=== PATIENT | male | born 1955 | race Two or more races ===

== ENCOUNTER 2022-01-02 00:29 | Inpatient (IN) | payer BC, OTHER ==
[~2022-01-02] VITALS: Ht 170.2 cm; Wt 106.9 kg
[2022-01-02] VITALS (63 sets, daily range): BP systolic 71–169; BP diastolic 8–113
[2022-01-02] MEDS ORDERED: dilTIAZem 25 MG/5 ML VIAL IV ONE ×4 (00:38→02:00)
[2022-01-02] MEDS ORDERED: METOPROLOL TARTRATE 1MG/1ML-5ML VIAL IV ONE ×2 (00:49→02:00)
[2022-01-02 00:56] LABS: Basophils # (auto) 0.1 10 ^3/uL (0-0.2); Eosinophils # (auto) 0.1 10 ^3/uL (0-0.8); Eosinophils % (auto) 0.8 % (0.0-7.0); Monocytes # (auto) 1.3 10 ^3/uL (0-1.3); Nucleated Red Blood Cells % 0.2 %
[2022-01-02 00:58] LABS: Basophils % (auto) 0.6 % (0.0-2.0); Hematocrit 52.8 % (41.0-53.0); Hemoglobin 18.2 g/dL (13.5-17.5); Lymphocytes # (auto) 4.2 10 ^3/uL (0.4-5.4); Mean Corpuscular Hemoglobin 34.6 pg (28.0-32.0); Mean Corpuscular Hgb Conc. 34.5 g/dL (32.0-36.0); Mean Corpuscular Volume 100.4 fL (80.0-100.0); Monocytes % (auto) 11.7 % (0.0-12.0); Neutrophils # (auto) 5.7 10 ^3/uL (1.6-8.6); Neutrophils % (auto) 49.9 % (37.0-80.0); Red Blood Cells 5.26 10^6/uL (4.5-5.90); Red Cell Distribution Width 14.6 % (11.8-14.3); White Blood Cell 11.3 10^3/uL (4.4-10.8)
[2022-01-02 01:10] LABS: INR 1.32 (0.9-1.15); Partial Thromboplastin Time 25.6 sec (24.6-33.4)
[2022-01-02] MEDS ORDERED: dilTIAZem 125mg/125ml BAG KIT 100 ML IV STA (01:13)
[2022-01-02 01:15] LABS: Albumin 3.6 g/dL (3.4-5.0); BUN/Creatinine Ratio 14.4; Calcium 8.3 mg/dL (8.5-10.1); Magnesium 1.9 mg/dL (1.6-2.6); Potassium 3.7 mmol/L (3.5-5.1)
[2022-01-02] MEDS ORDERED: ASPirin 81 mg TAB PO ONE (01:15)
[2022-01-02 01:18] LABS: Bilirubin, Total 1.2 mg/dL (0.2-1.0); Total Protein 7.1 g/dL (6.4-8.2)
[2022-01-02] MEDS ORDERED: NOREPINEPHRINE 8 MG/250ML KIT 250 ML IV ONE (01:45)
[2022-01-02 02:20] LABS: Lactic Acid w/Reflex 7.3 mmol/L (0.4-2.0)
[2022-01-02] MEDS ORDERED: HEPARIN DRIP/D5W 100UNITS/ML 250 ML IV SCH (02:45)
[2022-01-02] MEDS ORDERED: HEPARIN SODIUM (PORCINE) 5000 UNITS/ML 1ML VIAL IV ONE (02:45)
[2022-01-02] MEDS: NOREPINEPHRINE 8 MG/250ML KIT 250 ML IV SCH (03:46)
[2022-01-02] MEDS ORDERED: AMIODARONE 450mg/250ml AE 250 ML IV SCH (04:30)
[2022-01-02] MEDS ORDERED: ONDANSETRON HCL 4 MG/2 ML VIAL IV PRN (04:30)
[2022-01-02] MEDS ORDERED: MORPHINE SULFATE INJ 2 MG/ml SYRG IV PRN (04:30)
[2022-01-02] MEDS ORDERED: FUROSEMIDE 20 MG/2 ML VIAL IV ONE ×2 (04:30→14:30)
[2022-01-02] MEDS ORDERED: NITROGLYCERIN 0.4 MG SL TAB SL PRN (04:30)
[2022-01-02] MEDS ORDERED: AMIODARONE HCL 150 MG in D5W 5% 100 ML IV ONE (04:30)
[2022-01-02] MEDS ORDERED: AMIODARONE HCL (50 MG/ ML) 3 ML VIAL IV ONE (05:00)
[2022-01-02] MEDS ORDERED: PANTOPRAZOLE 40 MG TAB PO SCH (10:00)
[2022-01-02] MEDS ORDERED: FUROSEMIDE 40 MG TAB PO SCH (10:00)
[2022-01-02] MEDS: AMIODARONE 450mg/250ml AE 250 ML IV SCH ×2 (11:15→13:02)
[2022-01-02] MEDS ORDERED: methylPREDNISolone SOD SUCC 125 MG/2 ML VL IV ONE (14:30)
[2022-01-02] MEDS ORDERED: THIAMINE 100mg/ml INJ (200mg/2ml VIAL) IV ONE (14:30)
[2022-01-02] MEDS ORDERED: LORazepam 2MG/ML-1ML VIAL IV PRN (14:30)
[2022-01-02] MEDS ORDERED: POTASSIUM CHL 10 Meq TABLET PO ONE (14:30)
[2022-01-02] MEDS ORDERED: PANTOPRAZOLE 40 MG/10 ML VIAL INJ IV ONE (14:30)
[2022-01-02] MEDS ORDERED: PIPERACILLIN-TAZOB 3.375GM 100 ML IV ONE (14:30)
[2022-01-02] MEDS ORDERED: ENOXAPARIN SOD 40 MG/0.4 ML SYRINGE SC ONE ×2 (14:45→15:15)
[2022-01-02] MEDS: ALBUTEROL SULF 2.5 MG/0.5ML(0.5%) NEB SOLN NEB PRN ×2 (16:16→22:15)
[2022-01-02] MEDS: NICOTINE 21MG/24 HR TOPICAL PATCH TD SCH (16:26)
[2022-01-02] MEDS: IPRATROPIUM BROM 0.5 MG/2.5ML INH SOL NEB SCH ×2 (18:15→22:16)
[2022-01-02] MEDS: PIPERACILLIN-TAZOB 3.375GM 100 ML IV SCH (21:55)
[2022-01-02] MEDS: methylPREDNISolone SOD SUCC 125 MG/2 ML VL IV SCH (21:55)
[2022-01-03] VITALS (82 sets, daily range): BP systolic 92–149; BP diastolic 30–107
[2022-01-03] MEDS: AMIODARONE 450mg/250ml AE 250 ML IV SCH ×2 (03:33→12:59)
[2022-01-03 04:36] LABS: Basophils # (auto) 0 10 ^3/uL (0-0.2); Eosinophils # (auto) 0 10 ^3/uL (0-0.8); Lymphocytes # (auto) 0.6 10 ^3/uL (0.4-5.4); Mean Corpuscular Hemoglobin 34.3 pg (28.0-32.0); Neutrophils % (auto) 88.9 % (37.0-80.0); Nucleated Red Blood Cells % 0.8 %
[2022-01-03 04:38] LABS: Basophils % (auto) 0.2 % (0.0-2.0); Hematocrit 52.8 % (41.0-53.0); Hemoglobin 17.7 g/dL (13.5-17.5); Lymphocytes % (auto) 5.4 % (10.0-50.0); Mean Corpuscular Hgb Conc. 33.5 g/dL (32.0-36.0); Mean Corpuscular Volume 102.3 fL (80.0-100.0); Monocytes # (auto) 0.6 10 ^3/uL (0-1.3); Monocytes % (auto) 5.5 % (0.0-12.0); Neutrophils # (auto) 9.3 10 ^3/uL (1.6-8.6); Red Blood Cells 5.16 10^6/uL (4.5-5.90); Red Cell Distribution Width 14.5 % (11.8-14.3); White Blood Cell 10.5 10^3/uL (4.4-10.8)
[2022-01-03] MEDS: IPRATROPIUM BROM 0.5 MG/2.5ML INH SOL NEB SCH ×5 (06:00→22:00)
[2022-01-03] MEDS: methylPREDNISolone SOD SUCC 125 MG/2 ML VL IV SCH (06:05)
[2022-01-03] MEDS: PIPERACILLIN-TAZOB 3.375GM 100 ML IV SCH ×3 (06:05→21:48)
[2022-01-03 07:19] LABS: Albumin 3.3 g/dL (3.4-5.0); Calcium 7.9 mg/dL (8.5-10.1); Potassium 4.3 mmol/L (3.5-5.1)
[2022-01-03 07:45] LABS: BUN/Creatinine Ratio 17.6; Bilirubin, Total 1.8 mg/dL (0.2-1.0); Total Protein 6.1 g/dL (6.4-8.2)
[2022-01-03] MEDS ORDERED: DIGOXIN (250MCG/ML) 2 ML AMPULE IV ONE ×2 (09:30→12:45)
[2022-01-03] MEDS: NOREPINEPHRINE 8 MG/250ML KIT 250 ML IV SCH (09:30)
[2022-01-03] MEDS: NICOTINE 21MG/24 HR TOPICAL PATCH TD SCH (09:55)
[2022-01-03] MEDS: PANTOPRAZOLE 40 MG/10 ML VIAL INJ IV SCH (09:55)
[2022-01-03] MEDS: THIAMINE 100mg/ml INJ (200mg/2ml VIAL) IV SCH (09:56)
[2022-01-03] MEDS ORDERED: ENOXAPARIN SOD 40 MG/0.4 ML SYRINGE SC SCH (10:00)
[2022-01-03] MEDS ORDERED: FUROSEMIDE 20 MG/2 ML VIAL IV SCH (10:00)
[2022-01-03] MEDS ORDERED: POTASSIUM CHL 10 Meq TABLET PO SCH (10:00)
[2022-01-03] MEDS ORDERED: DEXTROSE (50%) 50ML SYRG IV PRN (12:30)
[2022-01-03 13:33] LABS: Urine Bacteria FEW /hpf (None Seen); Urine Blood 2+ /uL (Negative); Urine Specific Gravity 1.018 (1.001-1.035); Urine WBC 4 /hpf (0 - 3)
[2022-01-03] MEDS: SODIUM BICARBONATE 50ML VIAL 75 ML in D5W 5% 1,000 ML IV SCH (13:38)
[2022-01-03] MEDS: methylPREDNISolone SOD SUCC 40 MG/ML VL IV SCH ×2 (15:33→21:48)
[2022-01-03] MEDS: ACCU-CHEK COMFORT CURVE STRIP VI SCH (18:11)
[2022-01-03] MEDS: InsuLIN REG 1unit/0.01ml Soln (100units/ml) SC SCH (18:16)
[2022-01-03] MEDS ORDERED: LISI40TA11 PO (18:51)
[2022-01-03] MEDS ORDERED: AMLO-496 PO (18:51)
[2022-01-03] MEDS ORDERED: HYDR25TA4 PO (18:51)
[2022-01-04] VITALS (84 sets, daily range): BP systolic 94–133; BP diastolic 65–100
[2022-01-04] MEDS: InsuLIN REG 1unit/0.01ml Soln (100units/ml) SC SCH ×4 (00:05→17:57)
[2022-01-04] MEDS: ACCU-CHEK COMFORT CURVE STRIP VI SCH ×4 (00:05→17:56)
[2022-01-04] MEDS: AMIODARONE 450mg/250ml AE 250 ML IV SCH ×2 (00:43→14:42)
[2022-01-04] MEDS: NOREPINEPHRINE 8 MG/250ML KIT 250 ML IV SCH (03:30)
[2022-01-04 04:23] LABS: Basophils # (auto) 0 10 ^3/uL (0-0.2); Eosinophils # (auto) 0 10 ^3/uL (0-0.8); Hematocrit 50.1 % (41.0-53.0); Hemoglobin 17.1 g/dL (13.5-17.5); Lymphocytes # (auto) 0.4 10 ^3/uL (0.4-5.4); Lymphocytes % (auto) 3.5 % (10.0-50.0); Mean Corpuscular Hemoglobin 33.6 pg (28.0-32.0); Mean Corpuscular Hgb Conc. 34.1 g/dL (32.0-36.0); Mean Corpuscular Volume 98.6 fL (80.0-100.0); Monocytes # (auto) 0.4 10 ^3/uL (0-1.3); Monocytes % (auto) 3.5 % (0.0-12.0); Nucleated Red Blood Cells % 0.6 %; Red Blood Cells 5.08 10^6/uL (4.5-5.90); Red Cell Distribution Width 14.5 % (11.8-14.3); White Blood Cell 11.8 10^3/uL (4.4-10.8)
[2022-01-04 04:29] LABS: INR 2.28 (0.9-1.15); Partial Thromboplastin Time 26.8 sec (24.6-33.4)
[2022-01-04 04:43] LABS: Albumin 3.1 g/dL (3.4-5.0); Calcium 7.7 mg/dL (8.5-10.1)
[2022-01-04 04:59] LABS: BUN/Creatinine Ratio 24.1; Bilirubin, Total 2.1 mg/dL (0.2-1.0); Total Protein 5.8 g/dL (6.4-8.2)
[2022-01-04] MEDS: PIPERACILLIN-TAZOB 3.375GM 100 ML IV SCH (05:34)
[2022-01-04] MEDS: methylPREDNISolone SOD SUCC 40 MG/ML VL IV SCH ×2 (05:34→22:25)
[2022-01-04] MEDS: SODIUM BICARBONATE 50ML VIAL 75 ML in D5W 5% 1,000 ML IV SCH ×4 (05:35→18:50)
[2022-01-04] MEDS: IPRATROPIUM BROM 0.5 MG/2.5ML INH SOL NEB SCH ×5 (07:05→22:02)
[2022-01-04] MEDS: ALBUTEROL SULF 2.5 MG/0.5ML(0.5%) NEB SOLN NEB PRN ×2 (07:05→13:31)
[2022-01-04] MEDS: PANTOPRAZOLE 40 MG/10 ML VIAL INJ IV SCH (09:50)
[2022-01-04] MEDS: THIAMINE 100mg/ml INJ (200mg/2ml VIAL) IV SCH (09:50)
[2022-01-04] MEDS: NICOTINE 21MG/24 HR TOPICAL PATCH TD SCH (09:52)
[2022-01-04] MEDS ORDERED: AMIODARONE 450mg/250ml AE 250 ML IV SCH (13:45)
[2022-01-04] MEDS ORDERED: CARVEDILOL 3.125 MG TAB PO ONE (14:00)
[2022-01-04] MEDS: cefTRIAXone 1GM/50ML D5W 50 ML IV SCH (16:35)
[2022-01-04] MEDS: AZITHROMYCIN 500MG/ 250ML 250 ML IV SCH (17:07)
[2022-01-04] MEDS ORDERED: CARVEDILOL 3.125 MG TAB PO SCH (22:00)
[2022-01-04] MEDS: CARVEDILOL 3.125 MG TAB PO SCH (22:27)
[2022-01-05] VITALS (23 sets, daily range): BP systolic 75–122; BP diastolic 51–93
[2022-01-05] MEDS: ACCU-CHEK COMFORT CURVE STRIP VI SCH ×4 (00:18→18:08)
[2022-01-05] MEDS: NOREPINEPHRINE 8 MG/250ML KIT 250 ML IV SCH (03:30)
[2022-01-05 04:03] LABS: Basophils # (auto) 0 10 ^3/uL (0-0.2); Eosinophils # (auto) 0 10 ^3/uL (0-0.8); Eosinophils % (auto) 0.1 % (0.0-7.0); Hemoglobin 17.2 g/dL (13.5-17.5); Lymphocytes # (auto) 0.3 10 ^3/uL (0.4-5.4); Mean Corpuscular Hemoglobin 34.4 pg (28.0-32.0); Monocytes # (auto) 0.4 10 ^3/uL (0-1.3); Monocytes % (auto) 4.5 % (0.0-12.0); Red Blood Cells 4.99 10^6/uL (4.5-5.90)
[2022-01-05 04:05] LABS: Basophils % (auto) 0.1 % (0.0-2.0); Lymphocytes % (auto) 3.1 % (10.0-50.0); Mean Corpuscular Volume 98.2 fL (80.0-100.0); Neutrophils # (auto) 8.5 10 ^3/uL (1.6-8.6); Neutrophils % (auto) 92.2 % (37.0-80.0); Nucleated Red Blood Cells % 0.6 %; Red Cell Distribution Width 14.4 % (11.8-14.3); White Blood Cell 9.3 10^3/uL (4.4-10.8)
[2022-01-05 04:17] LABS: Albumin 2.7 g/dL (3.4-5.0); Calcium 7.4 mg/dL (8.5-10.1); Potassium 4.3 mmol/L (3.5-5.1)
[2022-01-05 04:25] LABS: BUN/Creatinine Ratio 33.3; Bilirubin, Total 2.2 mg/dL (0.2-1.0); Total Protein 5.4 g/dL (6.4-8.2)
[2022-01-05] MEDS: IPRATROPIUM BROM 0.5 MG/2.5ML INH SOL NEB SCH ×6 (06:00→21:41)
[2022-01-05] MEDS: InsuLIN REG 1unit/0.01ml Soln (100units/ml) SC SCH ×4 (06:09→18:00)
[2022-01-05] MEDS: AMIODARONE 450mg/250ml AE 250 ML IV SCH ×2 (08:00→22:55)
[2022-01-05] MEDS: cefTRIAXone 1GM/50ML D5W 50 ML IV SCH (09:43)
[2022-01-05] MEDS: PANTOPRAZOLE 40 MG/10 ML VIAL INJ IV SCH (09:44)
[2022-01-05] MEDS: methylPREDNISolone SOD SUCC 40 MG/ML VL IV SCH ×2 (09:44→22:35)
[2022-01-05] MEDS: AZITHROMYCIN 500MG/ 250ML 250 ML IV SCH (09:44)
[2022-01-05] MEDS: CARVEDILOL 3.125 MG TAB PO SCH ×2 (09:46→22:37)
[2022-01-05] MEDS: NICOTINE 21MG/24 HR TOPICAL PATCH TD SCH (09:47)
[2022-01-05] MEDS ORDERED: FUROSEMIDE 20 MG/2 ML VIAL IV ONE (11:15)
[2022-01-05] MEDS ORDERED: ALBUMIN 25% 100 ML IV ONE (11:15)
[2022-01-05] MEDS: SALINE 0.65 % NASAL SPRAY 45ML BOTTLE EACHNOSTRI SCH ×2 (12:00→22:00)
[2022-01-05] MEDS: THIAMINE 100mg/ml INJ (200mg/2ml VIAL) IV SCH (12:27)
[2022-01-05] MEDS: ALBUTEROL SULF 2.5 MG/0.5ML(0.5%) NEB SOLN NEB PRN (17:37)
[2022-01-05] MEDS: SODIUM BICARBONATE 50ML VIAL 75 ML in D5W 5% 1,000 ML IV SCH (18:50)
[2022-01-06] VITALS (22 sets, daily range): BP systolic 92–156; BP diastolic 65–136
[2022-01-06] MEDS: InsuLIN REG 1unit/0.01ml Soln (100units/ml) SC SCH ×4 (00:33→17:39)
[2022-01-06 04:41] LABS: Albumin 2.5 g/dL (3.4-5.0); Calcium 6.3 mg/dL (8.5-10.1); Magnesium 1.7 mg/dL (1.6-2.6); Potassium 3.4 mmol/L (3.5-5.1)
[2022-01-06 04:50] LABS: BUN/Creatinine Ratio 39.8; Bilirubin, Direct 0.9 mg/dL (0-0.2); Bilirubin, Total 1.8 mg/dL (0.2-1.0); Total Protein 4.6 g/dL (6.4-8.2)
[2022-01-06] MEDS: IPRATROPIUM BROM 0.5 MG/2.5ML INH SOL NEB SCH ×5 (05:58→22:00)
[2022-01-06] MEDS: SALINE 0.65 % NASAL SPRAY 45ML BOTTLE EACHNOSTRI SCH ×4 (06:00→22:23)
[2022-01-06] MEDS: ACCU-CHEK COMFORT CURVE STRIP VI SCH ×4 (06:00→17:39)
[2022-01-06 06:35] LABS: INR 2.17 (0.9-1.15)
[2022-01-06] MEDS ORDERED: POTASSIUM CHL 20 Meq TABLET PO ONE (08:15)
[2022-01-06] MEDS ORDERED: MAGNESIUM OXIDE 400 MG TAB PO ONE (08:15)
[2022-01-06] MEDS ORDERED: ALBUMIN 25% 100 ML IV ONE (08:15)
[2022-01-06] MEDS: NOREPINEPHRINE 8 MG/250ML KIT 250 ML IV SCH (08:23)
[2022-01-06] MEDS: methylPREDNISolone SOD SUCC 40 MG/ML VL IV SCH ×2 (08:48→22:24)
[2022-01-06] MEDS: PANTOPRAZOLE 40 MG/10 ML VIAL INJ IV SCH (08:53)
[2022-01-06] MEDS: THIAMINE 100mg/ml INJ (200mg/2ml VIAL) IV SCH (08:54)
[2022-01-06] MEDS: NICOTINE 21MG/24 HR TOPICAL PATCH TD SCH (08:58)
[2022-01-06] MEDS: CARVEDILOL 3.125 MG TAB PO SCH (09:03)
[2022-01-06] MEDS ORDERED: FUROSEMIDE 20 MG/2 ML VIAL IV ONE (10:00)
[2022-01-06] MEDS ORDERED: CARVEDILOL 3.125 MG TAB PO ONE (11:15)
[2022-01-06] MEDS: cefTRIAXone 1GM/50ML D5W 50 ML IV SCH (11:29)
[2022-01-06] MEDS: AZITHROMYCIN 500MG/ 250ML 250 ML IV SCH (13:23)
[2022-01-06] MEDS: AMIODARONE HCL 200 MG TAB PO SCH (22:24)
[2022-01-06] MEDS: CARVEDILOL 12.5 MG TAB PO SCH (22:26)
[2022-01-07] VITALS (21 sets, daily range): BP systolic 101–138; BP diastolic 50–93
[2022-01-07] MEDS: ACCU-CHEK COMFORT CURVE STRIP VI SCH ×5 (00:14→22:42)
[2022-01-07] MEDS: InsuLIN REG 1unit/0.01ml Soln (100units/ml) SC SCH ×5 (00:21→22:41)
[2022-01-07] MEDS: NOREPINEPHRINE 8 MG/250ML KIT 250 ML IV SCH (03:30)
[2022-01-07 04:09] LABS: Basophils # (auto) 0 10 ^3/uL (0-0.2); Basophils % (auto) 0.2 % (0.0-2.0); Eosinophils # (auto) 0 10 ^3/uL (0-0.8); Lymphocytes # (auto) 0.2 10 ^3/uL (0.4-5.4); Monocytes # (auto) 0.6 10 ^3/uL (0-1.3); Nucleated Red Blood Cells % 0.5 %
[2022-01-07 04:11] LABS: Eosinophils % (auto) 0.2 % (0.0-7.0); Hematocrit 48.4 % (41.0-53.0); Hemoglobin 16.5 g/dL (13.5-17.5); Lymphocytes % (auto) 2.4 % (10.0-50.0); Mean Corpuscular Hemoglobin 33.6 pg (28.0-32.0); Mean Corpuscular Volume 98.8 fL (80.0-100.0); Monocytes % (auto) 7.2 % (0.0-12.0); Neutrophils # (auto) 7.2 10 ^3/uL (1.6-8.6); Red Cell Distribution Width 14.2 % (11.8-14.3); White Blood Cell 7.9 10^3/uL (4.4-10.8)
[2022-01-07 04:15] LABS: Anion Gap 9 (5-15); BUN/Creatinine Ratio 34.8; Blood Urea Nitrogen 39 mg/dL (7-18); Calcium 7.7 mg/dL (8.5-10.1); Carbon Dioxide 29 mmol/L (21-32); Chloride 102 mmol/L (98-107); GFR African American 84 mL/min; GFR Non-African American 70 mL/min; Glucose 128 mg/dL (74-106); Magnesium 2.2 mg/dL (1.6-2.6); Phosphorus 3.1 mg/dL (2.5-4.90); Potassium 4.1 mmol/L (3.5-5.1); Sodium 140 mmol/L (136-145)
[2022-01-07 04:26] LABS: INR 1.88 (0.9-1.15)
[2022-01-07] MEDS: IPRATROPIUM BROM 0.5 MG/2.5ML INH SOL NEB SCH ×5 (06:04→21:57)
[2022-01-07] MEDS: SALINE 0.65 % NASAL SPRAY 45ML BOTTLE EACHNOSTRI SCH ×4 (06:25→21:47)
[2022-01-07] MEDS: CARVEDILOL 12.5 MG TAB PO SCH ×2 (10:16→21:05)
[2022-01-07] MEDS: PANTOPRAZOLE 40 MG/10 ML VIAL INJ IV SCH (10:16)
[2022-01-07] MEDS: methylPREDNISolone SOD SUCC 40 MG/ML VL IV SCH (10:16)
[2022-01-07] MEDS: AZITHROMYCIN 500MG/ 250ML 250 ML IV SCH (10:17)
[2022-01-07] MEDS: AMIODARONE HCL 200 MG TAB PO SCH ×2 (10:17→21:04)
[2022-01-07] MEDS: cefTRIAXone 1GM/50ML D5W 50 ML IV SCH (10:17)
[2022-01-07] MEDS: NICOTINE 21MG/24 HR TOPICAL PATCH TD SCH (10:18)
[2022-01-07] MEDS ORDERED: LISINOPRIL 5 MG TAB PO ONE (11:45)
[2022-01-07] MEDS: ALBUTEROL SULF 2.5 MG/0.5ML(0.5%) NEB SOLN NEB PRN ×3 (14:12→21:57)
[2022-01-07] MEDS: DOXYCYCLINE 100 MG TAB/CAP PO SCH (21:06)
[2022-01-08] VITALS (14 sets, daily range): BP systolic 111–135; BP diastolic 67–95
[2022-01-08 03:56] LABS: Basophils # (auto) 0 10 ^3/uL (0-0.2); Eosinophils # (auto) 0 10 ^3/uL (0-0.8); Hemoglobin 16.1 g/dL (13.5-17.5); Lymphocytes # (auto) 0.2 10 ^3/uL (0.4-5.4); Neutrophils # (auto) 7.9 10 ^3/uL (1.6-8.6); Red Blood Cells 4.71 10^6/uL (4.5-5.90)
[2022-01-08 03:58] LABS: Basophils % (auto) 0.1 % (0.0-2.0); Hematocrit 47.3 % (41.0-53.0); Lymphocytes % (auto) 2.5 % (10.0-50.0); Mean Corpuscular Hemoglobin 34.3 pg (28.0-32.0); Mean Corpuscular Hgb Conc. 34.1 g/dL (32.0-36.0); Mean Corpuscular Volume 100.4 fL (80.0-100.0); Monocytes # (auto) 0.8 10 ^3/uL (0-1.3); Monocytes % (auto) 9.3 % (0.0-12.0); Neutrophils % (auto) 88.1 % (37.0-80.0); Red Cell Distribution Width 14.2 % (11.8-14.3)
[2022-01-08 04:16] LABS: BUN/Creatinine Ratio 29.6; Calcium 8.1 mg/dL (8.5-10.1); Potassium 4.3 mmol/L (3.5-5.1)
[2022-01-08] MEDS: InsuLIN REG 1unit/0.01ml Soln (100units/ml) SC SCH ×4 (06:00→23:53)
[2022-01-08] MEDS: SALINE 0.65 % NASAL SPRAY 45ML BOTTLE EACHNOSTRI SCH ×4 (06:00→22:19)
[2022-01-08] MEDS: ACCU-CHEK COMFORT CURVE STRIP VI SCH ×3 (06:00→18:16)
[2022-01-08] MEDS: ALBUTEROL SULF 2.5 MG/0.5ML(0.5%) NEB SOLN NEB PRN ×2 (07:49→11:19)
[2022-01-08] MEDS: IPRATROPIUM BROM 0.5 MG/2.5ML INH SOL NEB SCH ×5 (07:49→22:00)
[2022-01-08] MEDS: DOXYCYCLINE 100 MG TAB/CAP PO SCH ×2 (09:33→22:19)
[2022-01-08] MEDS: CARVEDILOL 12.5 MG TAB PO SCH ×2 (09:34→22:18)
[2022-01-08] MEDS: MULTIPLE VITAMIN TAB PO SCH (09:34)
[2022-01-08] MEDS: LISINOPRIL 5 MG TAB PO SCH (09:35)
[2022-01-08] MEDS: FUROSEMIDE 20 MG TAB PO SCH (09:35)
[2022-01-08] MEDS: AMIODARONE HCL 200 MG TAB PO SCH ×2 (09:36→22:14)
[2022-01-08] MEDS: NICOTINE 21MG/24 HR TOPICAL PATCH TD SCH (09:36)
[2022-01-08] MEDS: cefTRIAXone 1GM/50ML D5W 50 ML IV SCH (09:37)
[2022-01-08] MEDS: PANTOPRAZOLE 40 MG TAB PO SCH (09:39)
[2022-01-08] MEDS ORDERED: AZITHROMYCIN 250 MG TAB PO SCH (10:00)
[2022-01-08] MEDS ORDERED: predniSONE 20 MG TAB PO SCH (10:00)
[2022-01-08] MEDS ORDERED: IOHEXOL 350 MG/ML 100ML IJ ONE (16:31)
[2022-01-08] MEDS ORDERED: LIDOCAINE 2%HCL (LOCAL ANESTH.) INJ 20ML MDV ONE (16:31)
[2022-01-08] MEDS ORDERED: ANGIOMAX 250 MG VIAL IV ONE (16:39)
[2022-01-08] MEDS ORDERED: SODIUM CHL 0.9% 0 ML ONE (16:39)
[2022-01-08] MEDS ORDERED: MIDAZOLAM HCL 2MG/2ML 2ml VIAL (1mg/ml) ONE (16:39)
[2022-01-08] MEDS ORDERED: fentaNYL CITRATE 100 MCG/2 ML VL ONE (16:39)
[2022-01-08] MEDS ORDERED: TICAGRELOR 90 MG TAB ONE (17:07)
[2022-01-08] MEDS: TICAGRELOR 90 MG TAB PO SCH (22:00)
[2022-01-09 04:52] VITALS: BP 129/91
[2022-01-09] MEDS: InsuLIN REG 1unit/0.01ml Soln (100units/ml) SC SCH ×3 (06:00→16:41)
[2022-01-09] MEDS: SALINE 0.65 % NASAL SPRAY 45ML BOTTLE EACHNOSTRI SCH ×4 (06:00→22:09)
[2022-01-09] MEDS: ACCU-CHEK COMFORT CURVE STRIP VI SCH ×4 (06:00→16:40)
[2022-01-09 06:18] LABS: Hematocrit 50.8 % (41.0-53.0); Hemoglobin 17.4 g/dL (13.5-17.5); Mean Corpuscular Hgb Conc. 34.3 g/dL (32.0-36.0); Mean Corpuscular Volume 99.2 fL (80.0-100.0); Red Blood Cells 5.12 10^6/uL (4.5-5.90); Red Cell Distribution Width 14.6 % (11.8-14.3); White Blood Cell 10.1 10^3/uL (4.4-10.8)
[2022-01-09 06:23] LABS: BUN/Creatinine Ratio 32.7; Band Neutrophils % (manual) 0; Basophils % (manual) 0 (0.0-2.0); Blast Cells 0; Calcium 8.1 mg/dL (8.5-10.1); Metamyelocytes % 0; Myelocytes % 0; Potassium 4.1 mmol/L (3.5-5.1); Promyelocytes % 0; Reactive Lymphocytes 0
[2022-01-09] MEDS: IPRATROPIUM BROM 0.5 MG/2.5ML INH SOL NEB SCH ×5 (07:27→21:56)
[2022-01-09] MEDS: ALBUTEROL SULF 2.5 MG/0.5ML(0.5%) NEB SOLN NEB PRN ×3 (07:27→18:39)
[2022-01-09 07:43] LABS: Eosinophils % (manual) 1 (0-7); Lymphocytes % (manual) 4 (10.0-50.0); Monocytes % (manual) 12 (0-12)
[2022-01-09 09:00] VITALS: BP 133/58
[2022-01-09] MEDS: cefTRIAXone 1GM/50ML D5W 50 ML IV SCH (09:06)
[2022-01-09] MEDS: DOXYCYCLINE 100 MG TAB/CAP PO SCH ×2 (09:07→22:06)
[2022-01-09] MEDS: NICOTINE 21MG/24 HR TOPICAL PATCH TD SCH (09:07)
[2022-01-09] MEDS: TICAGRELOR 90 MG TAB PO SCH ×2 (09:08→22:08)
[2022-01-09] MEDS: ASPirin 81 mg TAB PO SCH (09:08)
[2022-01-09] MEDS: CARVEDILOL 12.5 MG TAB PO SCH ×2 (09:10→22:06)
[2022-01-09] MEDS: FUROSEMIDE 20 MG TAB PO SCH (09:10)
[2022-01-09] MEDS: MULTIPLE VITAMIN TAB PO SCH (09:11)
[2022-01-09] MEDS: LISINOPRIL 5 MG TAB PO SCH (09:11)
[2022-01-09] MEDS: PANTOPRAZOLE 40 MG TAB PO SCH (09:11)
[2022-01-09] MEDS: AMIODARONE HCL 200 MG TAB PO SCH ×2 (09:12→22:08)
[2022-01-09] MEDS ORDERED: predniSONE 20 MG TAB PO SCH (10:00)
[2022-01-09 13:00] VITALS: BP 109/67
[2022-01-09 16:45] VITALS: BP 131/80
[2022-01-09 22:00] VITALS: BP 103/73
[2022-01-10] VITALS (10 sets, daily range): BP systolic 111–150; BP diastolic 79–106
[2022-01-10] MEDS: InsuLIN REG 1unit/0.01ml Soln (100units/ml) SC SCH ×5 (06:00→22:01)
[2022-01-10] MEDS: SALINE 0.65 % NASAL SPRAY 45ML BOTTLE EACHNOSTRI SCH ×4 (06:00→21:54)
[2022-01-10] MEDS: ACCU-CHEK COMFORT CURVE STRIP VI SCH ×5 (06:00→22:01)
[2022-01-10] MEDS: IPRATROPIUM BROM 0.5 MG/2.5ML INH SOL NEB SCH ×6 (06:28→18:35)
[2022-01-10] MEDS: cefTRIAXone 1GM/50ML D5W 50 ML IV SCH (09:49)
[2022-01-10] MEDS: CARVEDILOL 12.5 MG TAB PO SCH ×2 (10:00→21:56)
[2022-01-10] MEDS: PANTOPRAZOLE 40 MG TAB PO SCH (10:00)
[2022-01-10] MEDS: MULTIPLE VITAMIN TAB PO SCH (10:00)
[2022-01-10] MEDS: AMIODARONE HCL 200 MG TAB PO SCH ×2 (10:00→21:55)
[2022-01-10] MEDS: FUROSEMIDE 20 MG TAB PO SCH (10:00)
[2022-01-10] MEDS: predniSONE 20 MG TAB PO SCH (10:00)
[2022-01-10] MEDS: NICOTINE 21MG/24 HR TOPICAL PATCH TD SCH (10:00)
[2022-01-10] MEDS: ASPirin 81 mg TAB PO SCH (10:00)
[2022-01-10] MEDS: DOXYCYCLINE 100 MG TAB/CAP PO SCH ×2 (10:00→21:55)
[2022-01-10] MEDS: LISINOPRIL 5 MG TAB PO SCH (10:00)
[2022-01-10] MEDS: TICAGRELOR 90 MG TAB PO SCH ×2 (12:00→21:54)
[2022-01-10] MEDS ORDERED: IODIXANOL 320MG/ML 100ML BTL IV ONE (13:41)
[2022-01-10] MEDS ORDERED: LIDOCAINE 2%HCL (LOCAL ANESTH.) INJ 20ML MDV ONE (13:42)
[2022-01-10] MEDS ORDERED: fentaNYL CITRATE 100 MCG/2 ML VL ONE (14:11)
[2022-01-10] MEDS ORDERED: MIDAZOLAM HCL 2MG/2ML 2ml VIAL (1mg/ml) ONE (14:11)
[2022-01-10] MEDS ORDERED: SODIUM CHL 0.9% 50 ML ONE ×2 (14:12→15:34)
[2022-01-10] MEDS ORDERED: ANGIOMAX 250 MG VIAL IV ONE ×2 (14:12→15:33)
[2022-01-10] MEDS ORDERED: ATROPINE SULF 1 MG/10ml SYR ONE (14:45)
[2022-01-10] MEDS ORDERED: EPINEPHrine HCL 1 MG/10 ML SYRG ONE (14:46)
[2022-01-10] MEDS ORDERED: EPINEPHrine HCL 1 MG/1 ML AMP ONE (14:46)
[2022-01-10] MEDS ORDERED: IOHEXOL 350 MG/ML 100ML IJ ONE ×2 (14:54→15:41)
[2022-01-10] MEDS ORDERED: TICAGRELOR 90 MG TAB ONE (15:59)
[2022-01-11 05:00] VITALS: BP 124/81
[2022-01-11] MEDS: SALINE 0.65 % NASAL SPRAY 45ML BOTTLE EACHNOSTRI SCH ×4 (05:37→22:39)
[2022-01-11] MEDS: InsuLIN REG 1unit/0.01ml Soln (100units/ml) SC SCH ×4 (05:37→22:47)
[2022-01-11] MEDS: ACCU-CHEK COMFORT CURVE STRIP VI SCH ×4 (05:37→22:47)
[2022-01-11] MEDS: ALBUTEROL SULF 2.5 MG/0.5ML(0.5%) NEB SOLN NEB PRN ×4 (06:32→18:32)
[2022-01-11] MEDS: IPRATROPIUM BROM 0.5 MG/2.5ML INH SOL NEB SCH ×5 (06:32→22:00)
[2022-01-11 09:00] VITALS: BP 109/59
[2022-01-11] MEDS ORDERED: ACETAMINOPHEN 325 MG TAB PO PRN (09:00)
[2022-01-11 09:20] VITALS: BP 109/59
[2022-01-11] MEDS: cefTRIAXone 1GM/50ML D5W 50 ML IV SCH (10:28)
[2022-01-11] MEDS: NICOTINE 21MG/24 HR TOPICAL PATCH TD SCH (10:31)
[2022-01-11] MEDS: FUROSEMIDE 20 MG TAB PO SCH (10:32)
[2022-01-11] MEDS: MULTIPLE VITAMIN TAB PO SCH (10:33)
[2022-01-11] MEDS: DOXYCYCLINE 100 MG TAB/CAP PO SCH ×2 (10:34→22:38)
[2022-01-11] MEDS: AMIODARONE HCL 200 MG TAB PO SCH ×2 (10:37→22:38)
[2022-01-11] MEDS: CARVEDILOL 12.5 MG TAB PO SCH ×2 (10:38→22:00)
[2022-01-11] MEDS: LISINOPRIL 5 MG TAB PO SCH (10:39)
[2022-01-11] MEDS: ASPirin 81 mg TAB PO SCH (10:40)
[2022-01-11] MEDS ORDERED: HYDROcodone-ACET 5/325MG TAB PO PRN (11:30)
[2022-01-11] MEDS: predniSONE 20 MG TAB PO SCH (11:40)
[2022-01-11] MEDS: PANTOPRAZOLE 40 MG TAB PO SCH (11:43)
[2022-01-11] MEDS: TICAGRELOR 90 MG TAB PO SCH ×2 (11:43→22:39)
[2022-01-11 12:47] VITALS: BP 108/59
[2022-01-11 19:50] LABS: White Blood Cell 9.1 10^3/uL (4.4-10.8)
[2022-01-11 19:51] LABS: Hemoglobin 17.9 g/dL (13.5-17.5); Mean Corpuscular Hemoglobin 34.6 pg (28.0-32.0); Mean Corpuscular Hgb Conc. 35.1 g/dL (32.0-36.0); Mean Corpuscular Volume 98.4 fL (80.0-100.0); Red Blood Cells 5.18 10^6/uL (4.5-5.90); Red Cell Distribution Width 14.5 % (11.8-14.3)
[2022-01-11 19:56] LABS: Basophils % (manual) 0 (0.0-2.0); Blast Cells 0; Eosinophils % (manual) 0 (0-7); Myelocytes % 0; Promyelocytes % 0; Reactive Lymphocytes 0
[2022-01-11 20:40] LABS: Band Neutrophils % (manual) 5; Lymphocytes % (manual) 6 (10.0-50.0); Metamyelocytes % 1; Monocytes % (manual) 4 (0-12)
[2022-01-11 22:00] VITALS: BP 113/74
[2022-01-12 05:00] VITALS: BP 136/86
[2022-01-12] MEDS: ACCU-CHEK COMFORT CURVE STRIP VI SCH ×2 (05:01→14:53)
[2022-01-12] MEDS: SALINE 0.65 % NASAL SPRAY 45ML BOTTLE EACHNOSTRI SCH ×2 (05:01→14:57)
[2022-01-12] MEDS: InsuLIN REG 1unit/0.01ml Soln (100units/ml) SC SCH ×2 (05:01→12:00)
[2022-01-12] MEDS: ALBUTEROL SULF 2.5 MG/0.5ML(0.5%) NEB SOLN NEB PRN ×3 (05:39→13:43)
[2022-01-12] MEDS: IPRATROPIUM BROM 0.5 MG/2.5ML INH SOL NEB SCH ×3 (05:39→13:43)
[2022-01-12 08:39] VITALS: BP 113/82
[2022-01-12] MEDS: LISINOPRIL 5 MG TAB PO SCH (09:00)
[2022-01-12] MEDS: CARVEDILOL 12.5 MG TAB PO SCH (09:01)
[2022-01-12] MEDS: predniSONE 20 MG TAB PO SCH (09:13)
[2022-01-12] MEDS: AMIODARONE HCL 200 MG TAB PO SCH (09:13)
[2022-01-12] MEDS: cefTRIAXone 1GM/50ML D5W 50 ML IV SCH (09:13)
[2022-01-12] MEDS: DOXYCYCLINE 100 MG TAB/CAP PO SCH (09:14)
[2022-01-12] MEDS: MULTIPLE VITAMIN TAB PO SCH (09:14)
[2022-01-12] MEDS: ASPirin 81 mg TAB PO SCH (09:14)
[2022-01-12] MEDS: TICAGRELOR 90 MG TAB PO SCH (09:14)
[2022-01-12] MEDS: PANTOPRAZOLE 40 MG TAB PO SCH (09:14)
[2022-01-12] MEDS: FUROSEMIDE 20 MG TAB PO SCH (09:15)
[2022-01-12] MEDS: NICOTINE 21MG/24 HR TOPICAL PATCH TD SCH (09:23)
[2022-01-12 13:26] VITALS: BP 112/76
[2022-01-12] MEDS ORDERED: DOCUSATE SOD 100 MG CAP PO PRN (13:30)
[2022-01-12] MEDS ORDERED: AMIO200T33 PO (14:27)
[2022-01-12] MEDS ORDERED: DOCU100C10 PO (14:27)
[2022-01-12] MEDS ORDERED: TICA90TA PO (14:27)
[2022-01-12] MEDS ORDERED: ASPI-325 PO (14:27)
[2022-01-12] MEDS ORDERED: CAR125T PO (14:27)
[2022-01-12] MEDS ORDERED: FUR20T PO (14:27)
[2022-01-12] MEDS ORDERED: NITR0.4S29 SL (14:27)
[2022-01-12] MEDS ORDERED: LISI-275 PO (14:28)
[2022-01-12 15:50] VITALS: BP 113/82
== END 2022-01-12 17:30 | disposition home or self-care (01) | DRG 853 ==
LOC: EDUNIT# 00:29 → EDBD 00:29 → ER 00:29 → TELE 04:25 → ICU WEST 07:51 → TELE-WESTW 01-08 06:38
PROVIDERS: ADMIT Nurse Practitioner; ATTEND Internal Medicine
PROC: 05HC33Z Insertion of Infusion Device into Left Basilic Vein, Percutaneous Approach (ICD-10-PCS; 2022-01-02)
PROC: B54NZZA Ultrasonography of Left Upper Extremity Veins, Guidance (ICD-10-PCS; 2022-01-02)
PROC: 5A09357 Assistance with Respiratory Ventilation, Less than 24 Consecutive Hours, Continuous Positive Airway Pressure (ICD-10-PCS; 2022-01-02)
PROC: 4A023N7 Measurement of Cardiac Sampling and Pressure, Left Heart, Percutaneous Approach (ICD-10-PCS; 2022-01-08)
PROC: B215YZZ Fluoroscopy of Left Heart using Other Contrast (ICD-10-PCS; 2022-01-08)
PROC: B211YZZ Fluoroscopy of Multiple Coronary Arteries using Other Contrast (ICD-10-PCS; 2022-01-08)
PROC: 027034Z Dilation of Coronary Artery, One Artery with Drug-eluting Intraluminal Device, Percutaneous Approach (ICD-10-PCS; principal; 2022-01-10)
PROC: 02C03ZZ Extirpation of Matter from Coronary Artery, One Artery, Percutaneous Approach (ICD-10-PCS; 2022-01-10)
PROC: 5A0221D Assistance with Cardiac Output using Impeller Pump, Continuous (ICD-10-PCS; 2022-01-10)
PROC: 02HA3RJ Insertion of Short-term External Heart Assist System into Heart, Intraoperative, Percutaneous Approach (ICD-10-PCS; 2022-01-10)
DX: A41.9 Sepsis, unspecified organism (principal); I21.4 Non-ST elevation (NSTEMI) myocardial infarction; J18.9 Pneumonia, unspecified organism; N17.0 Acute kidney failure with tubular necrosis; R57.0 Cardiogenic shock; J96.00 Acute respiratory failure, unspecified whether with hypoxia or hypercapnia; I50.41 Acute combined systolic (congestive) and diastolic (congestive) heart failure; K72.00 Acute and subacute hepatic failure without coma; E87.20 Acidosis, unspecified; D68.59 Other primary thrombophilia; J44.1 Chronic obstructive pulmonary disease with (acute) exacerbation; I47.1 Supraventricular tachycardia; J44.0 Chronic obstructive pulmonary disease with (acute) lower respiratory infection; Z20.822 Contact with and (suspected) exposure to COVID-19; K72.90 Hepatic failure, unspecified without coma; D69.6 Thrombocytopenia, unspecified; I25.5 Ischemic cardiomyopathy; I48.91 Unspecified atrial fibrillation; I11.0 Hypertensive heart disease with heart failure; E66.9 Obesity, unspecified; Z68.31 Body mass index [BMI] 31.0-31.9, adult; F10.10 Alcohol abuse, uncomplicated; F17.210 Nicotine dependence, cigarettes, uncomplicated
CPT/HCPCS: 33967; 33968; 36415; 36600; 71045; 76705; 80048; 80053; 80162; 81001; 82248; 82805; 82962; 83036; 83605; 83735; 83880; 84100; 84484; 85007; 85025; 85027; 85379; 85610; 85730; 87040; 87081; 87426; 87493; 92933; 93005; 93306; 93458; 93970; 94640; 94660; 96365; 96366; 96367; 96368; 96375; 96376; 99152; 99153; 99291; C1874; C9113; G0378; J0171; J0696; J1815; J2250; J2405; J2543; J7060; P9047; Q9967

== ENCOUNTER → 2022-01-23 | Outpatient (CLI) | payer BC ==
[~2022-01-23] MED LIST: AMIO200T33 PO; ASPI-325 PO; CAR125T PO; DOCU100C10 PO; FUR20T PO; LISI-275 PO; NITR0.4S29 SL; TICA90TA PO
[2022-01-23 10:42] LABS: Potassium 4.4 mmol/L (3.5-5.1)
[2022-01-23 10:48] LABS: Albumin 2.8 g/dL (3.4-5.0); BUN/Creatinine Ratio 17.1; Bilirubin, Total 0.9 mg/dL (0.2-1.0); Calcium 8.6 mg/dL (8.5-10.1); Total Protein 6.7 g/dL (6.4-8.2)
[2022-01-23 19:02] LABS: Hepatitis A Ab IgM Negative; Hepatitis B Core IgM Negative; Hepatitis C Antibody Negative (Negative)
== END | disposition home or self-care (01) ==
LOC: LAB 09:54
PROVIDERS: ATTEND Nurse Practitioner Family
DX: R74.01 Elevation of levels of liver transaminase levels (principal)
CPT/HCPCS: 36415; 80053; 86705; 86709; 86803; 87340

== ENCOUNTER 2022-02-19 07:18 | Day surgery (SDC) | payer BC ==
[~2022-02-19] VITALS: Ht 175.3 cm; Wt 77.1 kg
[~2022-02-19 07:18] MED LIST changes: -AMIO200T33 PO; +APIX2.5T PO; -ASPI-325 PO; -DOCU100C10 PO; -NITR0.4S29 SL
[2022-02-19] MEDS ORDERED: fentaNYL CITRATE 100 MCG/2 ML VL IV ONE (08:15)
[2022-02-19] MEDS ORDERED: diphenhdrAMINE HCL 50 MG/1 ML VL IV ONE (08:15)
[2022-02-19] MEDS ORDERED: LIDOCAINE VISCOUS 2% 15ML UD MT PRN (08:15)
[2022-02-19] MEDS ORDERED: MIDAZOLAM HCL 2MG/2ML 2ml VIAL (1mg/ml) IV ONE (08:15)
[2022-02-19] MEDS ORDERED: LISINOPRIL 5 MG TAB PO SCH (10:00)
[2022-02-19] MEDS ORDERED: APIXABAN 2.5 MG TAB PO SCH (10:00)
[2022-02-19] MEDS ORDERED: TICAGRELOR 90 MG TAB PO SCH (10:00)
[2022-02-19] MEDS ORDERED: FUROSEMIDE 20 MG TAB PO SCH (10:00)
== END 2022-02-19 09:00 | disposition home or self-care (01) ==
LOC: CATH 07:18
PROVIDERS: ATTEND Internal Medicine
DX: I48.92 Unspecified atrial flutter (principal); Z53.8 Procedure and treatment not carried out for other reasons; Z20.822 Contact with and (suspected) exposure to COVID-19

== ENCOUNTER → 2022-07-17 | Outpatient (CLI) | payer BC ==
[2022-07-17 09:02] LABS: Basophils # (auto) 0.1 10 ^3/uL (0-0.2); Basophils % (auto) 0.8 % (0.0-2.0); Eosinophils # (auto) 0.3 10 ^3/uL (0-0.8); Eosinophils % (auto) 3.8 % (0.0-7.0); Hematocrit 49.4 % (41.0-53.0); Lymphocytes # (auto) 1.9 10 ^3/uL (0.4-5.4); Lymphocytes % (auto) 24.6 % (10.0-50.0); Mean Corpuscular Hemoglobin 31.2 pg (28.0-32.0); Mean Corpuscular Hgb Conc. 34.4 g/dL (32.0-36.0); Mean Corpuscular Volume 90.8 fL (80.0-100.0); Monocytes % (auto) 13.8 % (0.0-12.0); Neutrophils # (auto) 4.3 10 ^3/uL (1.6-8.6); Nucleated Red Blood Cells % 0.1 %; Red Blood Cells 5.44 10^6/uL (4.5-5.90); Red Cell Distribution Width 14.2 % (11.8-14.3); White Blood Cell 7.6 10^3/uL (4.4-10.8)
[2022-07-17 09:46] LABS: Albumin 3.5 g/dL (3.4-5.0); Calcium 9.8 mg/dL (8.5-10.1); Potassium 4.2 mmol/L (3.5-5.1)
[2022-07-17 09:52] LABS: BUN/Creatinine Ratio 19.2 (10.0-20.0); Bilirubin, Total 0.8 mg/dL (0.2-1.0); Total Protein 7.6 g/dL (6.4-8.2)
[2022-07-17 09:56] LABS: Free T4 (Free Thyroxine) 1.32 ng/dL (0.89-1.76); Prostate Specific Antigen 1.11 ng/mL (0.0-4.0)
== END | disposition home or self-care (01) ==
LOC: LAB 08:40
PROVIDERS: ATTEND Nurse Practitioner Family
DX: I25.5 Ischemic cardiomyopathy (principal); J44.9 Chronic obstructive pulmonary disease, unspecified; R74.8 Abnormal levels of other serum enzymes; R35.1 Nocturia
CPT/HCPCS: 36415; 80053; 80061; 84153; 84439; 84443; 85025

== ENCOUNTER 2023-12-13 08:04 | Inpatient (IN) | payer MEDICARE, MEDICAID ==
[~2023-12-13] VITALS: Ht 175.3 cm; Wt 85.5 kg
[~2023-12-13 08:04] MED LIST changes: -CAR125T PO; +CARV-216 PO; -FUR20T PO; +FURO20TA4 PO
[2023-12-13] MEDS: dilTIAZem 25 MG/5 ML VIAL IV ONE (09:37)
[2023-12-13] MEDS: dilTIAZem 125mg/125ml BAG KIT 125 ML IV ONE (09:47)
[2023-12-13 09:52] VITALS: PULSE 156; RESP 20; O2SAT 100
[2023-12-13 10:05] LABS: Potassium 4.2 mmol/L (3.5-5.1); Sodium 138 mmol/L (136-145)
[2023-12-13 10:06] LABS: Carbon Dioxide 27 mmol/L (20-30)
[2023-12-13 10:07] LABS: Calcium 9.7 mg/dL (8.7-10.4)
[2023-12-13 10:09] LABS: Basophils # (auto) 0.1 10 ^3/uL (0-0.2); Eosinophils # (auto) 0 10 ^3/uL (0-0.8); Eosinophils % (auto) 0.3 % (0.0-7.0); Hemoglobin 13.8 g/dL (13.5-17.5); Lymphocytes # (auto) 1.3 10 ^3/uL (0.4-5.4); Mean Corpuscular Hemoglobin 26.8 pg (28.0-32.0); Monocytes # (auto) 0.8 10 ^3/uL (0-1.3); Nucleated Red Blood Cells % 0.1 %
[2023-12-13 10:11] LABS: BUN/Creatinine Ratio 20.2 (10.0-20.0); Basophils % (auto) 0.7 % (0.0-2.0); Blood Urea Nitrogen 22 mg/dL (9-23); Glucose 97 mg/dL (74-106); Lymphocytes % (auto) 15.7 % (10.0-50.0); Mean Corpuscular Hgb Conc. 32.9 g/dL (32.0-36.0); Mean Corpuscular Volume 81.4 fL (80.0-100.0); Monocytes % (auto) 9.7 % (0.0-12.0); Neutrophils # (auto) 6.3 10 ^3/uL (1.6-8.6); Neutrophils % (auto) 73.6 % (37.0-80.0); Platelet Count (auto) 232 10^3/uL (140-450); Red Blood Cells 5.16 10^6/uL (4.5-5.90); Red Cell Distribution Width 17.1 % (11.8-14.3); White Blood Cell 8.5 10^3/uL (4.4-10.8)
[2023-12-13 10:45] LABS: Anion Gap 10 (5-15); Chloride 101 mmol/L (98-107)
[2023-12-13 11:21] LABS: Urine Bacteria None Seen /hpf (None Seen)
[2023-12-13] MEDS: FUROSEMIDE 40 MG/4 ML VIAL IV ONE (11:34)
[2023-12-13 12:09] LABS: Urine Blood Negative /uL (Negative); Urine Clarity Clear (Clear); Urine Color Yellow (Yellow); Urine Hyaline Cast FEW /lpf (0 - 2); Urine Mucus FEW (None Seen); Urine Protein, UAD 1+ (Negative); Urine Specific Gravity 1.025 (1.001-1.035); Urine Urobilinogen 3 mg/dL (Negative); Urine WBC 3 /hpf (0 - 3); Urine pH 5.5 (5.0-9.0)
[2023-12-13] MEDS ORDERED: NITROGLYCERIN 0.4 MG SL TAB SL PRN (12:30)
[2023-12-13] MEDS ORDERED: MORPHINE SULFATE INJ 2 MG/ml SYRG IV PRN (12:30)
[2023-12-13 12:54] LABS: Triglycerides 76 mg/dL (< 150)
[2023-12-13 12:55] LABS: LDL Cholesterol 61 mg/dL (< 100)
[2023-12-13 12:56] LABS: Cholesterol 93 mg/dL (< 200); HDL Cholesterol 18 mg/dL (40-59)
[2023-12-13] MEDS: DIGOXIN (250MCG/ML) 2 ML AMPULE IV ONE (13:09)
[2023-12-13 15:38] VITALS: BP 114/71; PULSE 128; RESP 20; O2SAT 94
[2023-12-13] MEDS: dilTIAZem 125mg/125ml BAG KIT 125 ML IV SCH (17:56)
[2023-12-13 19:30] VITALS: PULSE 93; RESP 18; O2SAT 96
[2023-12-13] MEDS: APIXABAN 2.5 MG TAB PO SCH (21:31)
[2023-12-13] MEDS: CARVEDILOL 12.5 MG TAB PO SCH (21:31)
[2023-12-13] MEDS ORDERED: TICAGRELOR 90 MG TAB PO SCH (22:00)
[2023-12-13 22:22] VITALS: O2SAT 93
[2023-12-13 22:24] VITALS: O2SAT 93
[2023-12-13] MEDS: SODIUM CHLORIDE 0.9% 1,000 ML IV ONE (22:52)
[2023-12-14] MEDS: MIDODRINE HCL 10 MG TAB PO SCH (00:37)
[2023-12-14] MEDS: SODIUM CHLORIDE 0.9% 1,000 ML IV SCH (03:23)
[2023-12-14] MEDS: NOREPINEPHRINE 8 MG/250ML KIT 250 ML IV SCH (04:34)
[2023-12-14 06:32] VITALS: O2SAT 98
[2023-12-14 06:50] LABS: Basophils # (auto) 0.1 10 ^3/uL (0-0.2); Basophils % (auto) 0.8 % (0.0-2.0); Eosinophils # (auto) 0.1 10 ^3/uL (0-0.8); Eosinophils % (auto) 1.5 % (0.0-7.0); Hematocrit 37.9 % (41.0-53.0); Hemoglobin 12.6 g/dL (13.5-17.5); Lymphocytes # (auto) 0.9 10 ^3/uL (0.4-5.4); Lymphocytes % (auto) 12.6 % (10.0-50.0); Mean Corpuscular Hemoglobin 27.2 pg (28.0-32.0); Mean Corpuscular Hgb Conc. 33.2 g/dL (32.0-36.0); Mean Corpuscular Volume 81.9 fL (80.0-100.0); Monocytes # (auto) 0.7 10 ^3/uL (0-1.3); Monocytes % (auto) 10.5 % (0.0-12.0); Neutrophils # (auto) 5.2 10 ^3/uL (1.6-8.6); Neutrophils % (auto) 74.6 % (37.0-80.0); Nucleated Red Blood Cells % 0.1 %; Platelet Count (auto) 195 10^3/uL (140-450); Red Blood Cells 4.63 10^6/uL (4.5-5.90); Red Cell Distribution Width 17.1 % (11.8-14.3); White Blood Cell 6.9 10^3/uL (4.4-10.8)
[2023-12-14 07:11] LABS: Alanine Aminotransferase 31 U/L (7-40); Albumin 3.5 g/dL (3.2-4.8); Alkaline Phosphatase 108 U/L (46-116); Anion Gap 7 (5-15); Aspartate Aminotransferase 48 U/L (13-40); BUN/Creatinine Ratio 20.3 (10.0-20.0); Blood Urea Nitrogen 25 mg/dL (9-23); Calcium 8.8 mg/dL (8.7-10.4); Carbon Dioxide 27 mmol/L (20-30); Chloride 103 mmol/L (98-107); Glucose 83 mg/dL (74-106); Potassium 4.3 mmol/L (3.5-5.1); Sodium 137 mmol/L (136-145)
[2023-12-14 07:12] LABS: Total Protein 5.9 g/dL (5.7-8.2)
[2023-12-14 07:30] VITALS: PULSE 86; RESP 29; O2SAT 97
[2023-12-14] MEDS: LISINOPRIL 5 MG TAB PO SCH (09:51)
[2023-12-14] MEDS ORDERED: ENOXAPARIN SOD 40 MG/0.4 ML SYRINGE SC SCH (10:00)
[2023-12-14] MEDS: FUROSEMIDE 20 MG/2 ML VIAL IV SCH ×2 (10:03→22:08)
[2023-12-14] MEDS: ASPirin 81 mg TAB PO ONE (10:38)
[2023-12-14] MEDS: AZITHROMYCIN 500MG/ 250ML 250 ML IV ONE (10:48)
[2023-12-14] MEDS: cefTRIAXone 1GM/50ML D5W 50 ML IV ONE (10:49)
[2023-12-14] MEDS: FAMOTIDINE 20 MG TAB PO ONE (10:55)
[2023-12-14 11:35] LABS: Rapid Influenza A Negative (Negative); Rapid Influenza B Negative (Negative)
[2023-12-14 11:38] LABS: COVID19 ANTIGEN SOFIA FIA NEGATIVE (NEGATIVE)
[2023-12-14] MEDS: AMIODARONE BOLUS KIT 100 ML IV ONE (17:51)
[2023-12-14] MEDS: AMIODARONE 450mg/250ml AE 250 ML IV SCH ×2 (18:12→23:07)
[2023-12-14 18:25] VITALS: O2SAT 97
[2023-12-15 05:19] LABS: Basophils # (auto) 0.1 10 ^3/uL (0-0.2); Eosinophils # (auto) 0.1 10 ^3/uL (0-0.8); Hemoglobin 13.2 g/dL (13.5-17.5); Mean Corpuscular Volume 83.3 fL (80.0-100.0); Nucleated Red Blood Cells % 0.2 %
[2023-12-15 05:21] LABS: Basophils % (auto) 0.8 % (0.0-2.0); Eosinophils % (auto) 1.1 % (0.0-7.0); Hematocrit 41.2 % (41.0-53.0); Lymphocytes # (auto) 1.3 10 ^3/uL (0.4-5.4); Lymphocytes % (auto) 15.5 % (10.0-50.0); Mean Corpuscular Hemoglobin 26.6 pg (28.0-32.0); Mean Corpuscular Hgb Conc. 31.9 g/dL (32.0-36.0); Monocytes % (auto) 11.7 % (0.0-12.0); Neutrophils # (auto) 6.2 10 ^3/uL (1.6-8.6); Neutrophils % (auto) 70.9 % (37.0-80.0); Platelet Count (auto) 197 10^3/uL (140-450); Red Blood Cells 4.94 10^6/uL (4.5-5.90); Red Cell Distribution Width 17.4 % (11.8-14.3); White Blood Cell 8.7 10^3/uL (4.4-10.8)
[2023-12-15 05:31] LABS: INR 1.62 (0.9-1.15); Partial Thromboplastin Time 28.7 SEC (24.5-34.5); Prothrombin Time 16.6 sec (9.3-11.8)
[2023-12-15 05:32] LABS: Alanine Aminotransferase 32 U/L (7-40); Albumin 3.5 g/dL (3.2-4.8); Alkaline Phosphatase 111 U/L (46-116); Anion Gap 6 (5-15); Aspartate Aminotransferase 51 U/L (13-40); BUN/Creatinine Ratio 17.2 (10.0-20.0); Blood Urea Nitrogen 22 mg/dL (9-23); Calcium 8.9 mg/dL (8.7-10.4); Carbon Dioxide 24 mmol/L (20-30); Chloride 104 mmol/L (98-107); Cholesterol 75 mg/dL (< 200); Glucose 109 mg/dL (74-106); HDL Cholesterol 16 mg/dL (40-59); LDL Cholesterol 47 mg/dL (< 100); Magnesium 2.2 mg/dL (1.6-2.6); Potassium 4.2 mmol/L (3.5-5.1); Sodium 134 mmol/L (136-145); Triglycerides 71 mg/dL (< 150)
[2023-12-15 05:33] LABS: Bilirubin, Total 0.9 mg/dL (0.2-1.0); Total Protein 6.2 g/dL (5.7-8.2)
[2023-12-15 07:15] VITALS: PULSE 88; RESP 21; O2SAT 93
[2023-12-15 07:20] VITALS: O2SAT 94
[2023-12-15] MEDS: cefTRIAXone 1GM/50ML D5W 50 ML IV SCH (09:17)
[2023-12-15] MEDS ORDERED: AZITHROMYCIN 500MG/ 250ML 250 ML IV SCH (10:00)
[2023-12-15] MEDS: FAMOTIDINE 20 MG TAB PO SCH (10:20)
[2023-12-15] MEDS: ASPirin 81 mg TAB PO SCH (10:20)
[2023-12-15] MEDS: ALBUTEROL SULF 2.5 MG/0.5ML(0.5%) NEB SOLN NEB PRN (15:33)
[2023-12-15] MEDS: BUMETANIDE 2.5mg/10ml (0.25 mg/ml) INJ IV ONE (16:49)
[2023-12-15 18:20] VITALS: O2SAT 98
[2023-12-15] MEDS: metOLazone 5 MG TAB PO ONE (19:19)
[2023-12-15 19:45] VITALS: PULSE 107; RESP 22; O2SAT 97
[2023-12-15] MEDS: TICAGRELOR 90 MG TAB PO SCH (22:19)
[2023-12-15 22:38] VITALS: BP 113/84; PULSE 107; PULSE 90; RESP 18; TEMP 98; O2SAT 95; O2SAT 98
[2023-12-16] VITALS (9 sets, daily range): BP systolic 97–120; BP diastolic 65–81; PULSE 60–99; RESP 16–19; TEMP 97.3–98.3; O2SAT 91–99
[2023-12-16 06:30] LABS: Basophils # (auto) 0.1 10 ^3/uL (0-0.2); Basophils % (auto) 0.9 % (0.0-2.0); Eosinophils # (auto) 0.1 10 ^3/uL (0-0.8); Eosinophils % (auto) 0.9 % (0.0-7.0); Hematocrit 40.6 % (41.0-53.0); Hemoglobin 13.4 g/dL (13.5-17.5); Lymphocytes # (auto) 0.8 10 ^3/uL (0.4-5.4); Lymphocytes % (auto) 9.6 % (10.0-50.0); Mean Corpuscular Hemoglobin 26.5 pg (28.0-32.0); Mean Corpuscular Volume 80.5 fL (80.0-100.0); Monocytes # (auto) 0.8 10 ^3/uL (0-1.3); Monocytes % (auto) 9.5 % (0.0-12.0); Neutrophils # (auto) 6.8 10 ^3/uL (1.6-8.6); Neutrophils % (auto) 79.1 % (37.0-80.0); Platelet Count (auto) 200 10^3/uL (140-450); Red Blood Cells 5.05 10^6/uL (4.5-5.90); Red Cell Distribution Width 16.8 % (11.8-14.3); White Blood Cell 8.7 10^3/uL (4.4-10.8)
[2023-12-16 06:41] LABS: Alanine Aminotransferase 37 U/L (7-40); Albumin 3.8 g/dL (3.2-4.8); Alkaline Phosphatase 117 U/L (46-116); Anion Gap 8 (5-15); Aspartate Aminotransferase 56 U/L (13-40); Bilirubin, Total 1.2 mg/dL (0.2-1.0); Blood Urea Nitrogen 30 mg/dL (9-23); Calcium 9.4 mg/dL (8.7-10.4); Carbon Dioxide 32 mmol/L (20-30); Chloride 96 mmol/L (98-107); Glucose 94 mg/dL (74-106); Potassium 3.5 mmol/L (3.5-5.1); Sodium 136 mmol/L (136-145); Total Protein 6.7 g/dL (5.7-8.2)
[2023-12-16] MEDS ORDERED: LEVALBUTEROL HCL 1.25 MG/3 ML NEB NEB PRN (10:00)
[2023-12-16] MEDS: FUROSEMIDE 20 MG/2 ML VIAL IV SCH (18:00)
[2023-12-16] MEDS: DOBUTamine 1000MCG/ML 250 ML IV SCH (21:08)
[2023-12-17] VITALS (11 sets, daily range): BP systolic 107–128; BP diastolic 64–83; PULSE 70–105; RESP 18–20; TEMP 97.6–98.2; O2SAT 62–99
[2023-12-17 08:10] LABS: Chloride 94 mmol/L (98-107); Potassium 3.4 mmol/L (3.5-5.1); Sodium 137 mmol/L (136-145)
[2023-12-17 08:11] LABS: Anion Gap 7 (5-15); Calcium 9.2 mg/dL (8.7-10.4); Carbon Dioxide 36 mmol/L (20-30)
[2023-12-17 08:16] LABS: Glucose 82 mg/dL (74-106)
[2023-12-17 08:17] LABS: BUN/Creatinine Ratio 24.6 (10.0-20.0); Blood Urea Nitrogen 31 mg/dL (9-23)
[2023-12-17] MEDS: CLOPIDOGREL BISULFATE 75 MG TAB PO SCH (09:28)
[2023-12-17] MEDS: POTASSIUM CHL 20 Meq TABLET PO ONE (10:45)
[2023-12-17] MEDS: FUROSEMIDE 20 MG/2 ML VIAL IV SCH (17:30)
[2023-12-17] MEDS: CARVEDILOL 12.5 MG TAB PO SCH (21:43)
[2023-12-18] VITALS (10 sets, daily range): BP systolic 101–114; BP diastolic 63–78; PULSE 52–114; RESP 16–18; TEMP 97.8–98.2; O2SAT 95–98
[2023-12-18 06:37] LABS: Calcium 9.8 mg/dL (8.7-10.4); Chloride 91 mmol/L (98-107); Potassium 3.5 mmol/L (3.5-5.1); Sodium 136 mmol/L (136-145)
[2023-12-18 06:38] LABS: Anion Gap 5 (5-15); Carbon Dioxide 40 mmol/L (20-30)
[2023-12-18 06:43] LABS: BUN/Creatinine Ratio 20.2 (10.0-20.0); Blood Urea Nitrogen 24 mg/dL (9-23); Glucose 82 mg/dL (74-106)
[2023-12-18] MEDS: AMIODARONE HCL 200 MG TAB PO SCH (09:56)
[2023-12-18] MEDS: ACETAMINOPHEN 325 MG TAB PO PRN (23:01)
[2023-12-19] VITALS (9 sets, daily range): BP systolic 96–123; BP diastolic 67–88; PULSE 61–94; RESP 18–20; TEMP 97.6–98.4; O2SAT 95–99
[2023-12-19 08:07] LABS: Calcium 9.5 mg/dL (8.7-10.4); Chloride 91 mmol/L (98-107); Potassium 3.4 mmol/L (3.5-5.1); Sodium 137 mmol/L (136-145)
[2023-12-19 08:09] LABS: Anion Gap 5.99999 (5-15)
[2023-12-19 08:13] LABS: BUN/Creatinine Ratio 19.7 (10.0-20.0); Blood Urea Nitrogen 23 mg/dL (9-23); Glucose 78 mg/dL (74-106)
[2023-12-19 08:16] LABS: Carbon Dioxide > 40 mmol/L (20-31)
[2023-12-20] VITALS (8 sets, daily range): BP systolic 91–143; BP diastolic 60–78; PULSE 50–93; RESP 14–24; TEMP 98.1–98.8; O2SAT 94–99
[2023-12-20 08:21] LABS: Chloride 92 mmol/L (98-107); Potassium 3.4 mmol/L (3.5-5.1); Sodium 138 mmol/L (136-145)
[2023-12-20 08:22] LABS: Anion Gap 7 (5-15); Carbon Dioxide 39 mmol/L (20-31)
[2023-12-20 08:23] LABS: Calcium 10.2 mg/dL (8.7-10.4)
[2023-12-20 08:27] LABS: Glucose 95 mg/dL (74-106)
[2023-12-20 08:28] LABS: BUN/Creatinine Ratio 16.2 (10.0-20.0); Blood Urea Nitrogen 18 mg/dL (9-23)
[2023-12-20] MEDS: POTASSIUM EFFERVESENT TAB 25 MEQ PO ONE (15:56)
[2023-12-20] MEDS ORDERED: FURO1TAB31 PO (17:20)
[2023-12-20] MEDS ORDERED: POTA-36 PO (17:20)
[2023-12-20] MEDS ORDERED: AMIO200T13 PO (17:20)
[2023-12-20] MEDS ORDERED: CLOP75TA70 PO (17:20)
[2023-12-20] MEDS ORDERED: FAMO-12 PO (17:20)
[2023-12-20] MEDS ORDERED: CARV3.1240 PO (17:20)
[2023-12-20] MEDS ORDERED: APIX2.5T PO (17:36)
== END 2023-12-20 19:18 | disposition home or self-care (01) | DRG 291 ==
LOC: ER 08:04 → TELE 12:32 → TELE-CENTR 12-15 22:38
PROVIDERS: ADMIT Nurse Practitioner Family; ATTEND Internal Medicine
DX: I13.0 Hypertensive heart and chronic kidney disease with heart failure and stage 1 through stage 4 chronic kidney disease, or unspecified chronic kidney disease (principal); I50.23 Acute on chronic systolic (congestive) heart failure; J96.00 Acute respiratory failure, unspecified whether with hypoxia or hypercapnia; R57.0 Cardiogenic shock; D68.69 Other thrombophilia; N17.9 Acute kidney failure, unspecified; Z20.822 Contact with and (suspected) exposure to COVID-19; I42.9 Cardiomyopathy, unspecified; I48.91 Unspecified atrial fibrillation; J44.9 Chronic obstructive pulmonary disease, unspecified; I25.10 Atherosclerotic heart disease of native coronary artery without angina pectoris; N18.9 Chronic kidney disease, unspecified; Z87.891 Personal history of nicotine dependence; Z95.5 Presence of coronary angioplasty implant and graft; Z91.199 Patient's noncompliance with other medical treatment and regimen due to unspecified reason; Z79.899 Other long term (current) drug therapy
CPT/HCPCS: 36415; 36600; 71045; 80048; 80053; 80061; 80162; 81001; 82805; 83735; 83880; 84443; 84484; 85025; 85610; 85730; 87040; 87426; 87804; 93005; 93306; 93971; 94640; 96374; 99291; G0378